=== PATIENT | female | born 1965 | race Caucasian/White ===

== ENCOUNTER 2022-10-25 14:18 | Outpatient (CLI) | payer BC | END 2022-10-25 14:19 | disposition home or self-care (01) | LOC: BICMRI 14:18 | PROVIDERS: ATTEND Psychiatry & Neurology Neurology | DX: R51.9 Headache, unspecified (principal) | CPT/HCPCS: 70553 ==

== ENCOUNTER 2022-10-29 21:42 | Emergency (ER) | payer BC | END 2022-10-30 00:46 | disposition home or self-care (01) | LOC: ERS 21:42 | DX: I80.01 Phlebitis and thrombophlebitis of superficial vessels of right lower extremity (principal) ==

== ENCOUNTER 2023-09-23 08:23 | Outpatient (CLI) | payer BC | END 2023-09-23 08:24 | disposition home or self-care (01) | LOC: RAD 08:23 | PROVIDERS: ATTEND Internal Medicine Critical Care Medicine | DX: R06.00 Dyspnea, unspecified (principal); R91.8 Other nonspecific abnormal finding of lung field | CPT/HCPCS: 71046 ==

== ENCOUNTER 2024-02-10 08:36 | Outpatient (CLI) | payer BC | END 2024-02-10 08:37 | disposition home or self-care (01) | LOC: RAD 08:36 | PROVIDERS: ATTEND Internal Medicine Critical Care Medicine | DX: R06.00 Dyspnea, unspecified (principal); R91.1 Solitary pulmonary nodule | CPT/HCPCS: 71046 ==